=== PATIENT | male | born 1980 | race Two or more races ===

== ENCOUNTER 2017-02-07 09:49 | Emergency (ER) | payer MEDICAID ==
[~2017-02-07] VITALS: Ht 188 cm; Wt 94.1 kg
[2017-02-07 12:22] VITALS: BP 124/80
== END 2017-02-07 12:22 | disposition home or self-care (01) ==
LOC: ED 09:49
DX: L03.115 Cellulitis of right lower limb (principal); N48.1 Balanitis; J02.9 Acute pharyngitis, unspecified; M79.1 Myalgia
CPT/HCPCS: J1885

== ENCOUNTER 2017-02-14 14:41 | Inpatient (IN) | payer MEDICAID ==
[~2017-02-14] VITALS: Ht 188 cm; Wt 95.9 kg
--- NOTE | 2017-02-14 15:17 | NUR ---
PT IS A 36 YEAR OLD MALE, PRESENTS TO ED WITH C/O ERYTHEMA AND SWELLING TO RIGHT VALLADARES AREA X3 WEEKS, PT REPORTS WAS HERE 1 WEEK AGO AND DISCHARGED WITH ANTIBIOTICS.
--- NOTE | 2017-02-14 16:30 | NUR ---
BLOOD GLUCOSE READ "HI", DOUBLE CHECKED IT AND READ "HI" AGAIN. DR. BERMAN MADE AWARE.
[2017-02-14 17:14] LABS: BASOPHIL % 0.4 % (0-2); PLATELET COUNT 195 x10^3mcL (130-400); RED CELL DISTRIBUTION WIDTH 12.7 % (11.5-14.5)
[2017-02-14 17:21] LABS: microscopic required? NO
--- NOTE | 2017-02-14 17:28 | NUR ---
UPON FURTHER ASSESSMENT PT ADMITTED THAT HE HAS BEEN HAVING BLURRY VISION, FREQUENT URINATION, AND THIRSTYNESS FOR THE PAST 3 WEEKS.
[2017-02-14 17:30] LABS: urine erythrocyte NEGATIVE (NEGATIVE)
[2017-02-14 17:30] LABS: ALKALINE PHOSPHATASE 184 U/L (46-116); ALT/SGPT 34 U/L (16-63); AST/SGOT 39 U/L (15-37); BILIRUBIN TOTAL 0.61 mg/dL (0.20-1.00); CALCIUM 7.4 mg/dL (8.5-10.1); CARBON DIOXIDE 21.2 mmol/L (21-32); CHLORIDE SERUM 94 mmol/L (98-107); CREATININE SERUM 1.1 mg/dL (0.7-1.3); GFR1 > 60 mL/min; MAGNESIUM 1.9 mg/dL (1.8-2.4); POTASSIUM SERUM 4.3 mmol/L (3.5-5.1); SODIUM SERUM 126 mmol/L (136-145); TOTAL PROTEIN, SERUM 6.9 g/dL (6.4-8.2)
[2017-02-14 17:33] LABS: ALBUMIN 2.9 g/dL (3.4-5.0)
[2017-02-14 17:35] LABS: GLUCOSE SERUM 719 mg/dL (74-106)
--- NOTE | 2017-02-14 18:43 | NUR ---
REPORT CALLED TO SALVADOR OZUNA, SHE WILL ASSUME CARE PRIMARY RN POST TRASFNER.
[2017-02-14 18:54] LABS: PHOSPHOROUS 3.1 mg/dL (2.5-4.9)
[2017-02-14 18:56] LABS: CHOLESTEROL/HDL RATIO 3.1
[2017-02-14 19:01] LABS: T3 TOTAL 0.78 ng/mL
[2017-02-14 19:15] LABS: FREE T4 1.31 ng/dL (0.76-1.46); FREE THYROXINE INDEX 3.2 ug/dL (1.4-4.5); T4(THYROXINE) 8.8 ug/dL (4.7-13.3)
--- NOTE | 2017-02-14 19:21 | NUR ---
PT TRANSFERRED TO TELE
[2017-02-14 19:36] VITALS: BP 124/88
--- NOTE | 2017-02-14 19:47 | NUR ---
RECEIVED PATIENT FROM ED VIA GUERNEY , PATIENT C/O PAIN TO RLE WILL MEDICATE ORDERED, REDNESS/CELLULITIS NOTED TO RLE, TELE # 5 SR, ORIENTED PATIENT TO ROOM AND SURROUNDING, BED IN LOW POSITION, BED RAILS UP X 2, CALL LIGHT WITHIN REACH, WILL ENDORSE CARE TO PRIMARY NURSE TRUDY OZUNA
--- NOTE | 2017-02-14 19:50 | NUR ---
RECEIVED REPORT FROM [facility]OUT. PATIENT C/O 9/10 RLE PAIN. WILL MEDICATE PER DOCTOR'S PRN ORDER. PATIENT ORIENTED TO ROOM AND CALL LIGHT. BED IN LOWEST POSITION. CALL LIGHT WITHIN REACH. WILL CONTINUE TO MONITOR.
[2017-02-14 21:28] LABS: CALCIUM 7.8 mg/dL (8.5-10.1); CARBON DIOXIDE 24.4 mmol/L (21-32); CHLORIDE SERUM 99 mmol/L (98-107); CREATININE SERUM 0.9 mg/dL (0.7-1.3); GFR1 > 60 mL/min; GLUCOSE SERUM 332 mg/dL (74-106); POTASSIUM SERUM 3.8 mmol/L (3.5-5.1); SODIUM SERUM 133 mmol/L (136-145)
[2017-02-14 21:49] VITALS: BP 124/88
[2017-02-15 05:03] LABS: AMPHETAMINE QUAL UR NONE DETECTED (NEG <=1000)
--- NOTE | 2017-02-15 05:24 | NUR ---
PATIENT RESTED THROUGHOUT THE NIGHT. NO DISTRESS NOTED. MEDICATED FOR RLE PAIN WITH MORPHINE X 2 AND TORADOL X 1 PER DOCTOR'S PRN ORDER. PAIN MANAGED THROUGHOUT THE NIGHT. SAFETY AND COMFORT MEASURES MAINTAINED. BED IN LOWEST POSITION. CALL LIGHT WITHIN REACH. WILL CONTINUE TO MONITOR AND ENDORSE TO NEXT SHIFT NURSE.
[2017-02-15 06:02] VITALS: BP 99/59
[2017-02-15 06:11] LABS: BASOPHIL % 0.3 % (0-2); PLATELET COUNT 194 x10^3mcL (130-400)
[2017-02-15 06:23] LABS: CALCIUM 7.6 mg/dL (8.5-10.1); CARBON DIOXIDE 25.9 mmol/L (21-32); CHLORIDE SERUM 105 mmol/L (98-107); CREATININE SERUM 0.8 mg/dL (0.7-1.3); GFR1 > 60 mL/min; GLUCOSE SERUM 189 mg/dL (74-106); PHOSPHOROUS 3.3 mg/dL (2.5-4.9); POTASSIUM SERUM 3.8 mmol/L (3.5-5.1); SODIUM SERUM 139 mmol/L (136-145)
--- NOTE | 2017-02-15 07:15 | NUR ---
RECEIVED PATIENT RESTING IN BED, IN NO ACUTE DISTRESS, NO C/O PAIN AT THIS TIME, TELE # 5 SR, PULSES PALPABLE TO ALL EXTREMITES, LUNG SOUNDS CLEAR ON RA, BOWEL SOUNDS ACTIVE, IV ACCESS TO LAC WNL, BED IN LOW POSITION, BED RAILS UP X 2, CALL LIGHT WITHIN REACH, WILL CONTINUE TO MONITOR
[2017-02-15 10:04] VITALS: BP 109/75
--- NOTE | 2017-02-15 12:50 | NUR ---
Initial Nutrition Assessment Dx: R Leg Cellulitis, New Onset DM PMHx: None PSHx: None Labs: BG 189 H, H/H 12.5/37 L; (02/14) ALB 2.9 L, AST 39 H, Triglycerides 208 H, A1C 11.9 H Meds: Colace, D10, Glucophage, Glucotrol, humulin R, lactinex, Prilosec, NS IV, theragran, zofran Current Diet Order: CCHO-60 gm PO Intakes: No PO intakes recorded yet Ht: 74", 6' 2". Wt: 211 lb, 96 kg. BMI: 27.2 kg/m2 (Overweight) IBW: 190 lb, 86 kg. %IBW: 112%. UBW: 211 lb, 96 kg. Age: 36 Y/O M Food Allergies: None Skin: RLE cellulitis. Harjeet 22. No pressure injuries noted. Edema: Swelling to BLE GI: Last BM 02/14. Formed stool. Nutrition Consult: New Onset DM. Pt found with R lower extremity cellulitis, hyperosmotic hyperosmolar state, glucose 719, new onset DMOOC with HCS, A1C 11.9 per doctor's notes. Pt was seen resting in bed during RD visit, alert and oriented. Pt stated that his appetite has been good so far, no issues. Problem with: N: None. V: None. D: None. C: None. Problems with: Chewing: None. Swallowing: None. Current Appetite: Good Recent Weight Change: None per pt. % Weight Change: N/A Vitamin/Supplement use: None Diet at Home: Regular; Pt reports liking to drink sodas, juices, eat sweets due to pt being excessively thirsty and having blurry vision Physical Activity: Cardio workouts every week Education: RD provided DM education to pt. RD discussed portion control, carb counting, food options, snack options, and exercise. DM Class Flyer provided, encouraged pt to attend. Handouts on education also provided. Pt verbalizes understanding, and stated he is afraid of amputation and will attempt his best to follow the diet. Estimated Nutritional Needs Based CBW 211 lb, 96 kg Energy: 1087-6653 kcal/day (25-30 kcal/kg for Maintenance) Protein: 96 gm/day (1 gm/kg for Maintenance) Fluids: 2880 ml/day (30 ml/kg for Maintenance) or per doctor Nutrition Diagnosis Altered nutrition related labs related to endocrine dysfunction, new onset DMOOC as evidenced by elevated BG 189 mg/dL, A1C 11.9% Intervention 1. Recommend CCHO-[address] provided DM education to pt. Monitor/Evaluate Goal: PO intakes to meet at least 75% of estimated needs with tolerance Monitor: PO intakes, tolerance to diet, labs, skin integrity, GI function, weights F/U in 7 days as LOW risk (02/22)
--- NOTE | 2017-02-15 12:50 | NUR ---
1. Recommend CCHO-[address] provided DM education to pt.
[2017-02-15 14:11] VITALS: BP 114/80
[2017-02-15 18:11] VITALS: BP 109/73
--- NOTE | 2017-02-15 19:30 | NUR ---
RECEIVED REPORT FROM DAY SHIFT RN. PT RESTING COMFORTABLY IN BED. NO C/O PAIN AT THIS TIME. IV ON RAC, NS INFUSING. SAFETY MEASURES IN PLACE. INSTRUCTED TO CALL IF ASSISTANCE IS NEEDED. CALL LIGHT WITHIN REACH.
[2017-02-15 21:48] VITALS: BP 119/86
[2017-02-16 05:30] VITALS: BP 100/68
--- NOTE | 2017-02-16 05:44 | NUR ---
PT SLEPT WELL DURING SHIFT. C/O RLE PAIN, MEDICATED WITH MORPHINE. SAFETY MEASURES MAINTAINED. ALL NEEDS ATTENDED TO. WILL ENDORSE CONTINUITY OF CARE TO DAY SHIFT RN.
[2017-02-16 06:21] LABS: BASOPHIL % 0.4 % (0-2); PLATELET COUNT 198 x10^3mcL (130-400); RED CELL DISTRIBUTION WIDTH 13.3 % (11.5-14.5)
[2017-02-16 06:27] LABS: CALCIUM 7.6 mg/dL (8.5-10.1); CARBON DIOXIDE 23.3 mmol/L (21-32); CHLORIDE SERUM 105 mmol/L (98-107); CREATININE SERUM 0.8 mg/dL (0.7-1.3); GFR1 > 60 mL/min; GLUCOSE SERUM 186 mg/dL (74-106); MAGNESIUM 1.5 mg/dL (1.8-2.4); PHOSPHOROUS 3.4 mg/dL (2.5-4.9); POTASSIUM SERUM 3.7 mmol/L (3.5-5.1); SODIUM SERUM 138 mmol/L (136-145)
--- NOTE | 2017-02-16 08:00 | NUR ---
AWAKE AND ALERT. TEMP 97.8. TELE #5 SINUS RHYTHM RATE 69. DENIES CHEST DISCOMFORT. RESP 18 EVEN. BREATH SOUNDS CLEAR. NO COUGH OR SOB. PULSE OX 98% RA. ABD SOFT, BOWEL TONES PRESENT. LBM=6-5-17. VOIDING QS. RIGHT LEG ANTERIOR ASPECT BELOW KNEE DEEP REDDISH IN COLOR. NO DRAINAGE NOTED. NO EDEMA. PULSES PRESENT. DENIES NUMBNESS OR TINGLING. RIGHT LEG ELEVATED ON PILLOW. C/O DISCOMFORT TO LEG "THROBBING, TINGLING AND HOT IN CENTER OF RED AREA 04/21." WILL CHECK ON PAIN MANAGEMENT. IV PATENT RAC INFUSING NORMAL SALINE 150CC/HR. SIDE RAILS UP X2. CALL LIGHT IN REACH.
--- NOTE | 2017-02-16 08:16 | NUR ---
REVIEWED PAIN MANAGEMENT. PT REQUESTS IV MORPHINE FOR 8 PAIN. REVIEWED USE OF TORADOL AND ORAL PAIN MEDS WITH ACTIONS AND SIDE EFFECTS. MED WITH MORPHINE SULFATE 2MG IVP REQUESTED.
--- NOTE | 2017-02-16 08:30 | NUR ---
PT REPORTS "FEELING BETTER PAIN DOWN TO 2/10." CALL LIGHT IN REACH.
--- NOTE | 2017-02-16 09:00 | NUR ---
DR SCHULZ IN ON ROUNDS. UPDATED WITH PT STATUS AND MG LEVEL=1.5. TO ORDER REPLACEMENT.
--- NOTE | 2017-02-16 09:05 | NUR ---
DR VICTORIA AND MEDICAL TEAM IN ON ROUNDS. CHARGE AND PRIMARY NURSE PRESENT. DISCUSSED DX CELLULITIS RLE AND IV ANTIBIOTICS CAUSING AN IMPROVEMENT TO LEG WITH DECREASED REDNESS. PT STATES "LIVES IN [facility], THEY KEEP THE PAIN PILLS IN THE BACK." DR VICTORIA WILL VERIFY [facility] AVAILABILITY TO KEEP PAIN MEDS ON SITE AND PLAN FOR DISCHARGE TODAY. PT VERBALIZED UNDERSTANDING.
[2017-02-16 10:22] VITALS: BP 100/69
--- NOTE | 2017-02-16 10:45 | NUR ---
PT SEEN BY MEDICAL STUDENT. PT CONTINUES TO C/O PAIN TO RIGHT LOWER LEG NOW 8. MED WITH TORADOL 30MG IVP AND NORCO ORDERED. WILL CONTINUE TO MONITOR.
--- NOTE | 2017-02-16 12:15 | NUR ---
SSP=[id number]. RISS COVERAGE 12 UNITS SQ GIVEN. SPOKE WITH DR SCHULZ. DIABETIC TEACHING TO BE REINFORCED. PT HAS OWN GLUCOMETER AT BEDSIDE. DIABETIC CLASS INFORMATION GIVEN AND ENCOURAGED PARTICIPATION IN MONTHLY CLASS TO INCREASE KNOWLEDGE OF DISEASE PROCESS AND DIET. VERBALIZED UNDERSTANDING.
[2017-02-16] MEDS ORDERED: METFORMIN HCL1000 MG PO ×2 (13:55→15:43)
[2017-02-16] MEDS ORDERED: GLU10 PO ×2 (13:55→15:43)
[2017-02-16] MEDS ORDERED: CLINDAMYCIN300 M1 PO ×2 (13:55→15:43)
[2017-02-16] MEDS ORDERED: MOT800 PO ×2 (13:57→15:43)
[2017-02-16] MEDS ORDERED: LAC PO ×2 (13:58→15:43)
[2017-02-16] MEDS ORDERED: THERA TABS1 TAB PO ×2 (13:58→15:43)
[2017-02-16] MEDS ORDERED: GOOD SENSE OMEP20 MG PO ×2 (13:59→15:43)
[2017-02-16] MEDS ORDERED: LEVEMIR100 U/M1 SC ×2 (13:59→15:43)
[2017-02-16 14:14] VITALS: BP 100/69
--- NOTE | 2017-02-16 16:15 | NUR ---
DISCHARGE PACKET COMPLETED. PT REQUESTS TO HAVE RX CALLED TO [facility] IN [place]. DR SCHULZ ELECTRONICALLY SUBMITTED RX. REVIEWED DISCHARGE INSTRUCTIONS, DIABETIC CARE DOCUMENTED, MEDS, ORAL ANTIBIOTICS, PRO BIOTICS, DIET AND FOLLOWUP APPT. IV REMOVED CATH TIP INTACT. TELE REMOVED AND RETURNED TO TELE UNIT. DC WITH BELONGINGS TO PRIVATE CAR WITH BELONGINGS.
== END 2017-02-16 16:05 | DRG 383 ==
LOC: ED 14:41 → DU 18:00
PROVIDERS: Emergency Medicine; ADMIT Family Medicine
DX: L03.115 Cellulitis of right lower limb (principal); N17.0 Acute kidney failure with tubular necrosis; E11.00 Type 2 diabetes mellitus with hyperosmolarity without nonketotic hyperglycemic-hyperosmolar coma (NKHHC); E44.0 Moderate protein-calorie malnutrition; D68.69 Other thrombophilia; E87.1 Hypo-osmolality and hyponatremia; E11.59 Type 2 diabetes mellitus with other circulatory complications; E87.8 Other disorders of electrolyte and fluid balance, not elsewhere classified; H53.8 Other visual disturbances; R63.1 Polydipsia; R35.8 Other polyuria; E78.2 Mixed hyperlipidemia; E83.39 Other disorders of phosphorus metabolism; Z68.27 Body mass index [BMI] 27.0-27.9, adult; Z72.0 Tobacco use
CPT/HCPCS: 36600; 82962; 83880; 84439; 90715; J1815; J1885; J1956; J2270; J2405; J3010; J3475; J3490; J7030; Q0092

== ENCOUNTER 2017-03-21 02:21 | Emergency (ER) | payer MEDICAID ==
[~2017-03-21 02:21] MED LIST: CLINDAMYCIN300 M1 PO; GLU10 PO; GOOD SENSE OMEP20 MG PO; LAC PO; LEVEMIR100 U/M1 SC; METFORMIN HCL1000 MG PO; MOT800 PO; THERA TABS1 TAB PO
[2017-03-21 04:35] LABS: BASOPHIL % 0.8 % (0-2); PLATELET COUNT 181 x10^3mcL (130-400); RED CELL DISTRIBUTION WIDTH 13.9 % (11.5-14.5)
[2017-03-21 04:40] LABS: CALCIUM 8.2 mg/dL (8.5-10.1); CARBON DIOXIDE 24.4 mmol/L (21-32); CHLORIDE SERUM 102 mmol/L (98-107); CREATININE SERUM 0.8 mg/dL (0.7-1.3); GFR1 > 60 mL/min; GLUCOSE SERUM 167 mg/dL (74-106); POTASSIUM SERUM 3.4 mmol/L (3.5-5.1); SODIUM SERUM 138 mmol/L (136-145)
[2017-03-21 04:55] LABS: ALBUMIN 3.6 g/dL (3.4-5.0); ALKALINE PHOSPHATASE 76 U/L (46-116); ALT/SGPT 37 U/L (16-63); AMYLASE 56 U/L (25-115); AST/SGOT 49 U/L (15-37); BILIRUBIN TOTAL 2.7 mg/dL (0.20-1.00); LIPASE 39 IU/L (73-393); TOTAL PROTEIN, SERUM 7.4 g/dL (6.4-8.2)
[2017-03-21 06:24] VITALS: BP 131/92
== END 2017-03-21 06:28 | disposition home or self-care (01) ==
LOC: ED 02:21
PROVIDERS: Emergency Medicine
DX: K29.00 Acute gastritis without bleeding (principal); E11.9 Type 2 diabetes mellitus without complications; Z79.4 Long term (current) use of insulin; Z79.84 Long term (current) use of oral hypoglycemic drugs
CPT/HCPCS: 83880; G0480; J2405; J3010; J3490

== ENCOUNTER 2017-06-21 12:56 | Emergency (ER) | payer MEDICAID ==
[~2017-06-21] VITALS: Ht 188 cm; Wt 103.0 kg
[2017-06-21 15:49] VITALS: BP 128/71
== END 2017-06-21 15:49 | disposition home or self-care (01) ==
LOC: ED 12:56
DX: S76.011A Strain of muscle, fascia and tendon of right hip, initial encounter (principal); E11.9 Type 2 diabetes mellitus without complications; R03.0 Elevated blood-pressure reading, without diagnosis of hypertension; X58.XXXA Exposure to other specified factors, initial encounter; Y93.89 Activity, other specified; Y99.8 Other external cause status; Y92.89 Other specified places as the place of occurrence of the external cause
CPT/HCPCS: 82962; J1885

== ENCOUNTER 2018-10-16 12:21 | Emergency (ER) | payer MEDICAID ==
[~2018-10-16] VITALS: Ht 188 cm; Wt 90.7 kg
[2018-10-16 14:04] LABS: BASOPHIL % 0.1 % (0-2); PLATELET COUNT 155 x10^3mcL (130-400)
[2018-10-16 14:05] LABS: RED CELL DISTRIBUTION WIDTH 15.6 % (11.5-14.5)
[2018-10-16 14:14] LABS: CALCIUM 8.2 mg/dL (8.5-10.1); CHLORIDE SERUM 99 mmol/L (98-107); GFR1 > 60 mL/min; GLUCOSE SERUM 297 mg/dL (74-106); POTASSIUM SERUM 3.8 mmol/L (3.5-5.1); SODIUM SERUM 133 mmol/L (136-145)
[2018-10-16 14:18] LABS: ALKALINE PHOSPHATASE 138 U/L (46-116); ALT/SGPT 29 U/L (16-63); AMYLASE 105 U/L (25-115); AST/SGOT 66 U/L (15-37); LIPASE 35 IU/L (73-393)
[2018-10-16 14:19] LABS: ALBUMIN 3.3 g/dL (3.4-5.0); TOTAL PROTEIN, SERUM 8.5 g/dL (6.4-8.2)
[2018-10-16 14:26] LABS: microscopic required? NO
[2018-10-16 14:51] LABS: urine erythrocyte NEGATIVE (NEGATIVE)
[2018-10-16 16:10] VITALS: BP 146/90
[2018-10-17 08:47] LABS: RAPID PLASMA REAGIN Reactive (Non Reactive)
== END 2018-10-16 16:10 | disposition home or self-care (01) ==
LOC: ED 12:21
PROVIDERS: Emergency Medicine
DX: N48.1 Balanitis (principal); E11.65 Type 2 diabetes mellitus with hyperglycemia
CPT/HCPCS: 82962; 87491; 87591; G0480; J1885; J7030

== ENCOUNTER 2018-10-17 19:53 | Emergency (ER) | payer MEDICAID ==
[~2018-10-17] VITALS: Ht 188 cm; Wt 91.6 kg
[2018-10-17 19:57] VITALS: Ht 188 cm; Wt 91.6 kg
[2018-10-17 21:25] LABS: microscopic required? NO
[2018-10-17 21:35] LABS: UA SPECIFIC GRAVITY 1.015 (1.005-1.035); urine erythrocyte NEGATIVE (NEGATIVE)
[2018-10-17 21:50] VITALS: BP 124/98
[2018-10-19 17:20] LABS: RAPID PLASMA REAGIN Reactive (Non Reactive)
== END 2018-10-17 21:50 | disposition home or self-care (01) ==
LOC: ED 19:53
PROVIDERS: Emergency Medicine
DX: L98.499 Non-pressure chronic ulcer of skin of other sites with unspecified severity (principal); E11.9 Type 2 diabetes mellitus without complications
CPT/HCPCS: 86694; J0696; J1885

== ENCOUNTER 2018-12-29 22:13 | Emergency (ER) | payer MEDICAID ==
[~2018-12-29] VITALS: Ht 188 cm; Wt 99.3 kg
[2018-12-29 22:16] VITALS: Ht 188 cm; Wt 99.3 kg
[2018-12-30 01:33] VITALS: BP 124/74
== END 2018-12-30 01:33 | disposition home or self-care (01) ==
LOC: ED 22:13
DX: S99.921A Unspecified injury of right foot, initial encounter (principal); X58.XXXA Exposure to other specified factors, initial encounter; Y93.67 Activity, basketball; Y92.310 Basketball court as the place of occurrence of the external cause; Y99.8 Other external cause status; K29.70 Gastritis, unspecified, without bleeding; E11.9 Type 2 diabetes mellitus without complications
CPT/HCPCS: 82962